=== PATIENT | female | born 1980 | race Caucasian/White ===

== ENCOUNTER → 2016-12-30 | Outpatient (REF) | payer OTHER | LOC: M LAB REF 12:06 | PROVIDERS: ATTEND Physician Assistant | DX: J02.9 Acute pharyngitis, unspecified (principal) ==

== ENCOUNTER → 2017-05-04 | Outpatient (REF) | payer OTHER | LOC: M SFHCWAGY 12:11 | DX: Z12.4 Encounter for screening for malignant neoplasm of cervix (principal) | CPT/HCPCS: G0123 ==

== ENCOUNTER → 2019-01-18 | Outpatient (REF) | payer OTHER ==
[2019-01-24 10:07] LABS: HPV HYBRID CAPTURE II Negative (Negative)
== END ==
LOC: M SFHCWAGY 16:14
PROVIDERS: ATTEND Nurse Practitioner Family
DX: Z12.4 Encounter for screening for malignant neoplasm of cervix (principal)
CPT/HCPCS: 87624; G0123

== ENCOUNTER → 2020-01-24 | Outpatient (CLI) | payer OTHER | LOC: M LABSMTC 09:54 | PROVIDERS: ATTEND Pediatrics | DX: Z20.828 Contact with and (suspected) exposure to other viral communicable diseases (principal) ==

== ENCOUNTER → 2021-01-01 | Outpatient (REF) | LOC: M LABSMTC 10:40 | PROVIDERS: ATTEND Family Medicine | DX: Z11.52 Encounter for screening for COVID-19 (principal) ==

== ENCOUNTER → 2021-03-25 | Outpatient (REF) | payer BC, OTHER | LOC: M SFHCWAGY 17:50 | PROVIDERS: ATTEND Nurse Practitioner Women's Health | DX: Z12.4 Encounter for screening for malignant neoplasm of cervix (principal) ==

== ENCOUNTER → 2022-05-12 | Outpatient (REF) | LOC: M LABSMTC 10:27 | PROVIDERS: ATTEND Family Medicine | DX: Z11.52 Encounter for screening for COVID-19 (principal) ==

== ENCOUNTER → 2022-07-14 | Outpatient (REF) | LOC: M LABSMTC 11:09 | PROVIDERS: ATTEND Family Medicine | DX: Z11.52 Encounter for screening for COVID-19 (principal) ==

== ENCOUNTER → 2022-08-18 | Outpatient (REF) | payer BC | LOC: M SFHCWAGY 10:21 | PROVIDERS: ATTEND Nurse Practitioner Family | DX: Z12.4 Encounter for screening for malignant neoplasm of cervix (principal) | CPT/HCPCS: 87624; G0123 ==

== ENCOUNTER → 2022-08-19 | Outpatient (CLI) | payer BC ==
[2022-08-19 07:12] LABS: BASO # 0.1 10^3/uL (0.0-0.2); BASO % 0.5 % (0.0-1.0); EOS # 0.3 10^3/uL (0.0-0.5); EOS % 3.2 % (0.0-3.0); HEMATOCRIT 40.5 % (36.0-47.0); HEMOGLOBIN 13.1 g/dl (12.0-15.5); LYMPH # 4.6 10^3/uL (1.5-5.0); LYMPH % 46.5 % (24.0-44.0); MEAN CORPUSCULAR HGB CONC 32.3 g/dl (32.0-36.5); MEAN CORPUSCULAR VOLUME 92.9 fl (80.0-96.0); MONO # 0.6 10^3/uL (0.0-0.8); MONO % 5.6 % (2.0-8.0); NEUTROPHILS # 4.3 10^3/uL (1.5-8.5); PLATELET COUNT, AUTOMATED 364 10^3/uL (150-450); RED BLOOD COUNT 4.36 10^6/uL (4.00-5.40); WHITE BLOOD COUNT 9.8 10^3/uL (4.0-10.0)
[2022-08-19 07:28] LABS: ALBUMIN 3.8 G/DL (3.2-5.2); ALKALINE PHOSPHATASE 53 U/L (46-116); ALT/SGPT 23 U/L (7.0-40); AST/SGOT < 8 U/L (<34); BILIRUBIN,TOTAL 0.4 MG/DL (0.3-1.2); BLOOD UREA NITROGEN 11 MG/DL (9-23); CARBON DIOXIDE LEVEL 27 MMOL/L (20-31); CHLORIDE LEVEL 108 MMOL/L (98-107); CREATININE FOR GFR 0.87 MG/DL (0.55-1.30); GLOMERULAR FILTRATION RATE > 60.0 (>58); GLUCOSE, FASTING 120 MG/DL (60-100); POTASSIUM SERUM 4.3 MMOL/L (3.5-5.1); SODIUM LEVEL 141 MMOL/L (136-145); TOTAL PROTEIN 6.8 G/DL (5.7-8.2)
[2022-08-19 07:32] LABS: THYROID STIMULATING HORMONE 2.543 uIU/ML (0.55-4.78)
[2022-08-19 14:53] LABS: CHOLESTEROL LEVEL 202 MG/DL (<200); CHOLESTEROL RISK RATIO 2.77 (<5); HDL CHOLESTEROL 72.9 MG/DL (>40); LDL CHOLESTEROL 100.9 MG/DL (<100); NON-HDL-C 129.1 MG/DL; TRIGLYCERIDES LEVEL 141 MG/DL (<150)
[2022-08-19 14:54] LABS: HEMOGLOBIN A1c 5.5 % (4.0-6.0)
== END ==
LOC: M RAD 06:23
PROVIDERS: ATTEND Physician Assistant
DX: Z00.01 Encounter for general adult medical examination with abnormal findings (principal); E78.5 Hyperlipidemia, unspecified; R73.01 Impaired fasting glucose; R00.0 Tachycardia, unspecified; R07.89 Other chest pain

== ENCOUNTER → 2022-09-29 | Outpatient (CLI) | payer BC | LOC: M WHC 16:13 | PROVIDERS: ATTEND Nurse Practitioner Family | DX: Z12.31 Encounter for screening mammogram for malignant neoplasm of breast (principal) ==

== ENCOUNTER → 2022-10-27 | Outpatient (CLI) | payer BC | LOC: M WHC 08:00 | PROVIDERS: ATTEND Nurse Practitioner Family | DX: R92.2 Inconclusive mammogram (principal) | CPT/HCPCS: 76642; 77065; G0279 ==

== ENCOUNTER → 2023-08-24 | Outpatient (CLI) | payer BC ==
[2023-08-24 08:45] LABS: HEMATOCRIT 37.4 % (36.0-47.0); HEMOGLOBIN 12.4 g/dl (12.0-15.5); MEAN CORPUSCULAR HEMOGLOBIN 30.1 pg (27.0-33.0); MEAN CORPUSCULAR HGB CONC 33.2 g/dl (32.0-36.5); MEAN CORPUSCULAR VOLUME 90.8 fl (80.0-96.0); PLATELET COUNT, AUTOMATED 385 10^3/uL (150-450); RED BLOOD COUNT 4.12 10^6/uL (4.00-5.40)
[2023-08-24 09:04] LABS: ALBUMIN 3.2 G/DL (3.2-5.2); ALKALINE PHOSPHATASE 57 U/L (46-116); ALT/SGPT 25 U/L (7.0-40); AST/SGOT 15 U/L (<34); BILIRUBIN,TOTAL 0.3 MG/DL (0.3-1.2); BLOOD UREA NITROGEN 9 MG/DL (9-23); CARBON DIOXIDE LEVEL 26 MMOL/L (20-31); CHLORIDE LEVEL 108 MMOL/L (98-107); CHOLESTEROL LEVEL 201 MG/DL (<200); CHOLESTEROL RISK RATIO 3.39 (<5); CREATININE FOR GFR 0.81 MG/DL (0.55-1.30); GLOMERULAR FILTRATION RATE > 60.0 (>58); GLUCOSE, FASTING 107 MG/DL (60-100); HDL CHOLESTEROL 59.2 MG/DL (>40); LDL CHOLESTEROL 108.4 MG/DL (<100); NON-HDL-C 141.8 MG/DL; POTASSIUM SERUM 4.2 MMOL/L (3.5-5.1); SODIUM LEVEL 140 MMOL/L (136-145); TOTAL PROTEIN 6.7 G/DL (5.7-8.2); TRIGLYCERIDES LEVEL 167 MG/DL (<150)
[2023-08-24 09:06] LABS: THYROID STIMULATING HORMONE 1.774 uIU/ML (0.55-4.78)
[2023-08-25 07:06] LABS: WHITE BLOOD COUNT 7.6 10^3/uL (4.0-10.0)
== END ==
LOC: M LAB 07:51
PROVIDERS: ATTEND Physician Assistant
DX: E78.5 Hyperlipidemia, unspecified (principal); R00.0 Tachycardia, unspecified

== ENCOUNTER → 2023-10-02 | Outpatient (CLI) | payer BC ==
[2023-10-02 13:27] LABS: HEMOGLOBIN A1c 5.4 % (4.0-6.0)
[2023-10-02 13:28] LABS: PERCENT SATURATION 19.9 % (13.2-45.0)
[2023-10-02 13:29] LABS: FERRITIN 8.3 NG/ML (7.3-270.7); FREE T4 1.15 NG/DL (0.89-1.76)
== END ==
LOC: M PLALAB 10:38
PROVIDERS: ATTEND Nurse Practitioner Family
DX: N92.0 Excessive and frequent menstruation with regular cycle (principal)

== ENCOUNTER → 2023-10-02 | Outpatient (CLI) | payer BC | LOC: M WHC 09:21 | PROVIDERS: ATTEND Nurse Practitioner Family | DX: Z12.31 Encounter for screening mammogram for malignant neoplasm of breast (principal) ==

== ENCOUNTER → 2023-10-04 | Outpatient (CLI) | payer BC | LOC: M RAD 14:09 | PROVIDERS: ATTEND Nurse Practitioner Family | DX: N92.0 Excessive and frequent menstruation with regular cycle (principal) ==

== ENCOUNTER → 2023-10-23 | Outpatient (CLI) | payer BC | LOC: M WHC 13:00 | PROVIDERS: ATTEND Nurse Practitioner Family | DX: R92.8 Other abnormal and inconclusive findings on diagnostic imaging of breast (principal) | CPT/HCPCS: 76642; 77065; G0279 ==

== ENCOUNTER → 2024-02-14 | Outpatient (REF) | LOC: M EMP 08:28 | PROVIDERS: ATTEND Family Medicine | DX: Z11.52 Encounter for screening for COVID-19 (principal) ==

== ENCOUNTER → 2024-03-13 | Outpatient (CLI) | payer BC | LOC: M WUC 13:28 | PROVIDERS: ATTEND Physician Assistant | DX: M25.512 Pain in left shoulder (principal) ==

== ENCOUNTER → 2024-04-16 | Outpatient (CLI) | payer BC ==
[~2024-04-16] MED LIST: BACL10TA2 PO; CETI10CA2 PO; MELO15TA28 PO
== END ==
LOC: M WHC 14:38
PROVIDERS: ATTEND Nurse Practitioner Family
DX: Z53.9 Procedure and treatment not carried out, unspecified reason (principal)

== ENCOUNTER 2024-04-29 06:11 | Day surgery (SDC) | payer BC ==
[~2024-04-29] VITALS: Ht 167.6 cm; Wt 73.2 kg
[2024-04-29] VITALS (7 sets, daily range): BP systolic 110–132; BP diastolic 61–79; TEMP 97.6–98.6; O2SAT 95–98
[2024-04-29] MEDS ORDERED: LR 1,000 ML IV SCH (06:20)
[2024-04-29 06:58] LABS: HEMOGLOBIN 12.1 g/dl (12.0-15.5); MEAN CORPUSCULAR HEMOGLOBIN 29.7 pg (27.0-33.0); MEAN CORPUSCULAR HGB CONC 33.6 g/dl (32.0-36.5); MEAN CORPUSCULAR VOLUME 88.5 fl (80.0-96.0); PLATELET COUNT, AUTOMATED 370 10^3/uL (150-450); RED BLOOD COUNT 4.07 10^6/uL (4.00-5.40)
[2024-04-29] MEDS: SCOPOLAMINE 1MG TRANSDERMAL PATCH TOP ONE (07:10)
[2024-04-29] MEDS: ceFAZolin SOD 2 GM in IV 1 EA IV ONE (07:36)
[2024-04-29] MEDS ORDERED: HYDROmorphone HCL 2MG/ML 1ML VIAL As Ordered ONE (07:58)
[2024-04-29] MEDS ORDERED: ROCURONIUM BROMIDE 50MG/5ML VIAL As Ordered ONE (07:58)
[2024-04-29] MEDS ORDERED: ONDANSETRON 4MG 2ML VIAL As Ordered ONE (07:58)
[2024-04-29] MEDS ORDERED: dexmedeTOMIDine (4MCG/ML)200MCG/50ML BTL (PRECEDEX) As Ordered ONE (07:58)
[2024-04-29] MEDS ORDERED: LIDOCAINE 2% 100MG/5ML SDV (FOR ANES.) As Ordered ONE (07:58)
[2024-04-29] MEDS ORDERED: ACETAMINOPHEN 1000MG/100ML IV BAG As Ordered ONE (07:58)
[2024-04-29] MEDS ORDERED: KETOROLAC 60MG 2ML VIAL As Ordered ONE (07:58)
[2024-04-29] MEDS ORDERED: fentaNYL 250 MCG/5 ML INJECTION As Ordered ONE (07:58)
[2024-04-29] MEDS ORDERED: SUGAMMADEX SODIUM 500 MG/5 ML VIAL (BRIDION) As Ordered ONE (07:58)
[2024-04-29] MEDS ORDERED: MIDAZOLAM INJ 2MG/2ML VIAL As Ordered ONE (07:58)
[2024-04-29] MEDS ORDERED: METOCLOPRAMIDE INJ 10MG/2ML VIAL As Ordered ONE (07:58)
[2024-04-29] MEDS ORDERED: propofoL 200 MG/20 ML VIAL As Ordered ONE (07:58)
[2024-04-29] MEDS: METHYLENE BLUE 0.5% (5MG/ML) 10 ML AMP (PROVAYBLUE) As Ordered ONE (09:00)
[2024-04-29] MEDS ORDERED: PERCOCET 5MG/325MG TAB PO PRN ×2 (09:20)
[2024-04-29] MEDS ORDERED: HYDROMORPHONE HCL 0.5 MG/ 0.5 ML SYRINGE IV PRN (09:20)
[2024-04-29] MEDS ORDERED: MORPHINE 4 MG/ML 1ML VIAL IV PRN (09:20)
[2024-04-29] MEDS ORDERED: ONDANSETRON 4MG 2ML VIAL IV PRN ×2 (09:20→12:00)
[2024-04-29] MEDS: LR 1,000 ML IV SCH (09:20)
[2024-04-29] MEDS ORDERED: fentaNYL 100 MCG/2 ML INJECTION IV PRN (09:20)
[2024-04-29] MEDS ORDERED: IBUP80TA PO (09:29)
[2024-04-29] MEDS ORDERED: COLA100C5 PO (09:29)
[2024-04-29] MEDS ORDERED: PERCOCET PO (09:29)
[2024-04-29] MEDS: oxyCODONE 5MG TAB PO PRN (09:35)
[2024-04-29] MEDS: KETOROLAC 30 MG/ML 1ML VIAL IV SCH (14:36)
[2024-04-29] MEDS ORDERED: ONDA-282 PO (17:19)
[2024-04-29] MEDS ORDERED: DOCUSATE SODIUM 100MG CAPSULE PO SCH (21:00)
[2024-04-30] MEDS ORDERED: IBUPROFEN 800 MG TAB PO SCH (11:00)
== END 2024-04-29 17:50 | disposition home or self-care (01) ==
LOC: M SDC 06:11 → UNDOADMOB 06:12 → M RR INP 06:12 → M PED 11:15 → M RR INP 11:15 → UNDODISOB 17:50 → M SDC 17:50
PROVIDERS: ATTEND Obstetrics & Gynecology
DX: N84.0 Polyp of corpus uteri (principal); N93.9 Abnormal uterine and vaginal bleeding, unspecified; D25.9 Leiomyoma of uterus, unspecified; Z88.0 Allergy status to penicillin; Z88.1 Allergy status to other antibiotic agents
CPT/HCPCS: 58571; 81025; 85027; 86850; 86900; 86901; 88305; 88307; 96374; J0131; J0665; J0690; J1100; J1171; J1885; J2250; J2405; J2765; J3010; Q9968; S2900

== ENCOUNTER → 2024-05-09 | Outpatient (CLI) | payer BC ==
[~2024-05-09] MED LIST changes: +COLA100C5 PO; +IBUP80TA PO; +ONDA-282 PO; +PERCOCET PO
== END ==
LOC: M WHC 07:16
PROVIDERS: ATTEND Nurse Practitioner Family
DX: R92.8 Other abnormal and inconclusive findings on diagnostic imaging of breast (principal)

== ENCOUNTER → 2024-08-23 | Outpatient (CLI) | payer BC ==
[2024-08-23 08:44] LABS: HEMATOCRIT 39.6 % (36.0-47.0); HEMOGLOBIN 13.1 g/dl (12.0-15.5); MEAN CORPUSCULAR HEMOGLOBIN 29.6 pg (27.0-33.0); MEAN CORPUSCULAR HGB CONC 33.1 g/dl (32.0-36.5); MEAN CORPUSCULAR VOLUME 89.4 fl (80.0-96.0); PLATELET COUNT, AUTOMATED 355 10^3/uL (150-450); RED BLOOD COUNT 4.43 10^6/uL (4.00-5.40); WHITE BLOOD COUNT 8.4 10^3/uL (4.0-10.0)
[2024-08-23 09:06] LABS: ALBUMIN 3.6 G/DL (3.2-5.2); BILIRUBIN,TOTAL 0.3 MG/DL (0.3-1.2); CALCIUM LEVEL 9.3 MG/DL (8.5-10.1); CHOLESTEROL RISK RATIO 3.51 (<5); CREATININE FOR GFR 0.86 MG/DL (0.55-1.30); GLOMERULAR FILTRATION RATE 86.5 (>58); HDL CHOLESTEROL 63.8 MG/DL (>40); LDL CHOLESTEROL 112.4 MG/DL (<100); NON-HDL-C 160.2 MG/DL; POTASSIUM SERUM 4.4 MMOL/L (3.5-5.1); TOTAL PROTEIN 7.3 G/DL (5.7-8.2)
[2024-08-23 09:08] LABS: THYROID STIMULATING HORMONE 2.115 uIU/ML (0.55-4.78)
== END ==
LOC: M LAB 07:44
PROVIDERS: ATTEND Physician Assistant
DX: E78.5 Hyperlipidemia, unspecified (principal)

== ENCOUNTER → 2024-11-26 | Outpatient (CLI) | payer BC | LOC: M WHC 10:05 | PROVIDERS: ATTEND Nurse Practitioner Family | DX: R92.8 Other abnormal and inconclusive findings on diagnostic imaging of breast (principal); R92.343 Mammographic extreme density, bilateral breasts | CPT/HCPCS: 76642; 77066; G0279 ==

== ENCOUNTER → 2025-02-04 | Outpatient (REF) | payer BC ==
[2025-02-04 09:18] LABS: CHOLESTEROL LEVEL 215.0 MG/DL (<200); CHOLESTEROL RISK RATIO 2.97 (<5); LDL CHOLESTEROL 114.2 MG/DL (<100); NON-HDL-C 142.8 MG/DL
[2025-02-07 06:51] LABS: TRIGLYCERIDES LEVEL 143.0 MG/DL (<150)
== END ==
LOC: M LAB REF 08:30
PROVIDERS: ATTEND Physician Assistant
DX: E78.5 Hyperlipidemia, unspecified (principal)